=== PATIENT | male | born 1965 | race Asian ===

== ENCOUNTER 2017-08-24 10:25 | Outpatient (CLI) | payer OTHER ==
[2017-08-24] MEDS ORDERED: LIDOCAINE 1%, 20 ML MDV 20 ML ONE (11:00)
[2017-08-24] MEDS ORDERED: IOHEXOL 50 ML IV ONE (11:00)
[2017-08-24] MEDS ORDERED: BUPIVACAINE /PF 0.25% 30 ML VIAL INJ ONE (11:00)
[2017-08-24] MEDS ORDERED: NS 50 ML IV ONE (11:01)
[2017-08-24] MEDS ORDERED: methylPREDNISolone ACETATE 80 MG/ML ONE (11:01)
== END 2017-08-24 20:47 | disposition home or self-care (01) ==
LOC: SRD 10:25
PROVIDERS: ATTEND Family Medicine
DX: M13.851 Other specified arthritis, right hip (principal)
CPT/HCPCS: 76000; J1040; J2001; J3490; Q9967